=== PATIENT | female | born 2000 | race Caucasian/White ===

== ENCOUNTER 2024-08-28 14:35 | Emergency (ER) | payer MEDICAID ==
[~2024-08-28] VITALS: Ht 165.1 cm; Wt 73.0 kg
[2024-08-28 14:37] VITALS: O2SAT 98
[2024-08-28] MEDS: LEVETIRACETAM 500MG TABLET PO ONE (15:09)
[2024-08-28 15:11] LABS: BASOPHILS % 0.5 % (0.0-2.0); EOSINOPHILS % 0.6 % (0.0-5.0); HEMOGLOBIN. 13.4 g/dL (12.0-16.0); LYMPHOCYTES % 18.2 % (20.0-50.0); MEAN CORPUSCULAR HEMOGLOBIN 30.6 pg (28.0-32.0); MEAN CORPUSCULAR HGB CONC 34.5 g/dL (31.0-37.0); MEAN CORPUSCULAR VOLUME 88.8 fL (81.0-99.0); MEAN PLATELET VOLUME 9.1 fl (7.4-10.4); MONOCYTES % 5.2 % (2.0-8.0); NEUTROPHILS % 75.5 % (40.0-76.0); PLATELET 241 x1000/uL (130-400); RED BLOOD CELL COUNT 4.39 mill/uL (4.2-5.4); RED CELL DISTRIBUTION WIDTH 13.8 % (11.6-14.6); WHITE BLOOD COUNT 10.2 x1000/uL (4.5-11.0)
[2024-08-28 15:18] LABS: CHLORIDE 103 mEq/L (98-107); POTASSIUM 3.7 mEq/L (3.5-5.1); SODIUM 137 mEq/L (136-145)
[2024-08-28 15:19] LABS: CALCIUM 8.7 mg/dL (8.7-10.4); CARBON DIOXIDE 25 mEq/L (21-32)
[2024-08-28 15:23] LABS: HCG SCREEN NEGATIVE
[2024-08-28 15:24] LABS: CREATININE 0.7 mg/dL (0.6-1.0); GLUCOSE 118 mg/dL (70-105); UREA NITROGEN BLOOD 10 mg/dL (9-23)
[2024-08-28] MEDS ORDERED: KEPP500 MT (16:01)
[2024-08-28 16:29] VITALS: BP 113/73; PULSE 102; RESP 14; TEMP 36.6; O2SAT 100
== END 2024-08-28 16:32 | disposition home or self-care (01) ==
LOC: ER 14:35
DX: S00.512A Abrasion of oral cavity, initial encounter (principal); R56.9 Unspecified convulsions; Z98.890 Other specified postprocedural states; X58.XXXA Exposure to other specified factors, initial encounter; Y93.89 Activity, other specified; Y92.89 Other specified places as the place of occurrence of the external cause; Y99.8 Other external cause status
CPT/HCPCS: 36415; 80048; 84703; 85025; 99283

== ENCOUNTER 2024-11-17 13:08 | Emergency (ER) | payer MEDICAID ==
[~2024-11-17] VITALS: Ht 162.6 cm; Wt 63.0 kg
[~2024-11-17 13:08] MED LIST: KEPP500 MT
[2024-11-17 13:10] VITALS: TEMP 36.9; O2SAT 98
[2024-11-17] MEDS ORDERED: LEVETIRACETAM 0 MG in SODIUM CHLORIDE 0.9% 100 ML IV ONE (13:30)
[2024-11-17] MEDS: LACTATED RINGERS 1,000 ML IV ONE (13:32)
[2024-11-17 14:07] LABS: BASOPHILS % 0.5 % (0.0-2.0); EOSINOPHILS % 0.9 % (0.0-5.0); HEMATOCRIT. 39.4 % (36.0-48.0); HEMOGLOBIN. 13.3 g/dL (12.0-16.0); LYMPHOCYTES % 22.6 % (20.0-50.0); MEAN PLATELET VOLUME 9.1 fl (7.4-10.4); MONOCYTES % 4.9 % (2.0-8.0); NEUTROPHILS % 71.1 % (40.0-76.0); PLATELET 225 x1000/uL (130-400); RED BLOOD CELL COUNT 4.42 mill/uL (4.2-5.4); RED CELL DISTRIBUTION WIDTH 14.9 % (11.6-14.6)
[2024-11-17 14:20] LABS: CREATININE 0.7 mg/dL (0.6-1.0); UREA NITROGEN BLOOD 13 mg/dL (9-23)
[2024-11-17 14:21] LABS: ETHANOL BLOOD < 10 mg/dL (<10)
[2024-11-17 14:22] LABS: ASPARTATE AMINOTRANSFERASE 31 IU/L (<34); BILIRUBIN DIRECT < 0.1 mg/dL (<=3.0)
[2024-11-17 14:23] LABS: BILIRUBIN TOTAL 0.4 mg/dL (0.1-1.0); HCG SCREEN NEGATIVE; PROTEIN TOTAL 7.1 g/dL (6.0-8.3)
[2024-11-17] MEDS: LEVETIRACETAM 3,500 MG in SODIUM CHLORIDE 0.9% 250 ML IV SCH (14:39)
[2024-11-17] MEDS ORDERED: KEPP500 MT (15:08)
[2024-11-17 16:14] VITALS: TEMP 98.4
[2024-11-17 16:15] VITALS: BP 110/72; PULSE 105; RESP 20; O2SAT 98
== END 2024-11-17 16:26 | disposition home or self-care (01) ==
LOC: ER 13:08
DX: R56.9 Unspecified convulsions (principal); Z79.899 Other long term (current) drug therapy
CPT/HCPCS: 80076; 80048; 80320; 84703; 83735; 85025; 36415; 93005; 96361; 96365; 99284; J1953; J7120; J7050; 99285; G0480